=== PATIENT | male | born 1985 | race Two or more races ===

== ENCOUNTER 2024-07-16 15:27 | Emergency (ER) | payer BC ==
[~2024-07-16] VITALS: Ht 165.1 cm; Wt 61.2 kg
[~2024-07-16 15:27] MED LIST: DICY10CA37 PO; KETO10TA2 PO; LORA-259 PO
[2024-07-16 18:11] LABS: APPEARANCE,URINE CLEAR (CLEAR); BILIRUBIN,URINE Negative (NEGATIVE); BLOOD, URINE Negative Ery/uL (NEGATIVE); COLOR,URINE YELLOW (YELLOW); KETONES,URINE Trace mg/dL (NEGATIVE); LEUKOCYTE ESTERASE ,URINE Negative (NEGATIVE); PROTEIN,URINE Negative (NEGATIVE); UGLUCOSE Negative (NEGATIVE); UROBILINOGEN,URINE 0.2 EU/dL (0.2)
[2024-07-16 18:13] LABS: NITRITE, URINE NEGATIVE (NEGATIVE)
[2024-07-16 18:14] LABS: ADD URINE CULTURE NO; BACTERIA,URINE None seen /HPF (None Seen); RBC,URINE 0-2 /HPF (0-2); SQUAMOUS EPITHELIAL CELL,UR None Seen /HPF (None Seen); WBC,URINE 0-2 /HPF (0-3)
[2024-07-16 18:14] LABS: BASOPHILS % (AUTO) 0.3 % (0.0-2.0); HEMATOCRIT 46 % (39-51); HEMOGLOBIN 15.8 g/dL (13.5-17.5); LYMPHOCYTES # (AUTO) 0.9 K/uL (0.8-4.8); MEAN CORPUSCULAR HEMOGLOBIN 31 PG (26.0-33.0); MEAN CORPUSCULAR HGB CONC 35 g/dl (31.0-36.0); MEAN CORPUSCULAR VOLUME 90 fL (80-96); MONOCYTES # (AUTO) 0.4 K/uL (0.1-1.30); MONOCYTES % (AUTO) 4.5 % (2.0-12.0); NEUTROPHILS # (AUTO) 7.1 K/uL (1.8-8.9); NEUTROPHILS % (AUTO) 84.2 % (43.0-81.0); PLATELET COUNT (AUTO) 275 K/uL (150-450); RED BLOOD CELL COUNT(AUTO) 5.05 MIL/uL (4.5-6.0); RED CELL DISTRIBUTION WIDTH 13.8 % (11.5-15.0); WHITE BLOOD COUNT (AUTO) 8.4 K/uL (4.3-11.0)
[2024-07-16 18:22] LABS: CALCIUM, SERUM 9.2 mg/dL (8.5-10.1); CREATININE 0.9 mg/dL (0.6-1.3); POTASSIUM 3.8 mmol/L (3.5-5.1)
[2024-07-16] MEDS ORDERED: KETOROLAC TROMETHAMINE INJ 30 MG/ML VIAL ONE (18:25)
[2024-07-16 18:26] LABS: INR 1.07 (0.91-1.10); PARTIAL THROMBOPLASTIN TIME 23.4 SEC (24.3-34.3)
[2024-07-16 18:27] LABS: ALBUMIN 4.2 g/dL (3.4-5.0); BILIRUBIN,DIRECT 0.2 mg/dL (0.0-0.2); BILIRUBIN,TOTAL 0.9 mg/dL (0.2-1.0); TOTAL PROTEIN, SERUM 8.1 g/dL (6.4-8.2)
[2024-07-16] MEDS: IV NS 0.9% 1,000 ML BAG IV ONE (18:29)
[2024-07-16] MEDS: KETOROLAC TROMETHAMINE 15 MG/ML VIAL IV ONE (18:30)
[2024-07-16] MEDS ORDERED: IBUP-1490 PO (18:49)
[2024-07-16] MEDS ORDERED: METH-647 PO (18:49)
[2024-07-16] MEDS ORDERED: HYDROCODONE/APAP 5/325MG TABLET ONE (19:08)
[2024-07-16] MEDS: HYDROCODONE/APAP 5/325MG TABLET PO ONE (19:18)
[2024-07-16 19:19] VITALS: BP 130/90; TEMP 98.5; O2SAT 99
== END 2024-07-16 19:20 | disposition home or self-care (01) ==
LOC: ER 15:32
DX: M54.50 Low back pain, unspecified (principal)
CPT/HCPCS: 99285; 74176; 96374; 96361; 85025; 80048; 83690; 80076; 81001; 36415; 85730; J1885; J7030